=== PATIENT | female | born 1950 | race Caucasian/White ===

== ENCOUNTER 2017-04-08 13:40 | Inpatient (IN) | payer MEDICAID ==
[~2017-04-08] VITALS: Ht 175.3 cm; Wt 100.3 kg
[2017-04-08 13:42] VITALS: BP 156/76; PULSE 78; RESP 16; O2SAT 98
[2017-04-08] MEDS ORDERED: NORT25CA PO (14:00)
[2017-04-08] MEDS ORDERED: GABA300C5 PO (14:00)
[2017-04-08] MEDS ORDERED: OMEP40CA2 PO (14:00)
[2017-04-08] MEDS ORDERED: vicodin PO (14:00)
[2017-04-08] MEDS ORDERED: SODIUM CHLORIDE 0.9% FLUSH 10 ML FLUSH IV FLUSH PRN ×2 (14:15→17:15)
[2017-04-08] MEDS ORDERED: SODIUM CHLOR 0.9% 1000 ML INJ 1,000 ML IV ONE (14:15)
[2017-04-08] MEDS ORDERED: MORPHINE SULFATE 4 MG/ML INJ IV PUSH ONE (14:15)
--- NOTE | 2017-04-08 14:24 | PD ---
HPI Chief Complaint: Fall Time Seen by Provider: 14:09 Travel History International Travel<30 days: No Contact w/Intl Traveler<30days: No Traveled to known affect area: No History of Present Illness HPI 66-year-old female with PMH of gastric bypass, right TKR presents to the ED via EMS from [facility] for evaluation of neck pain status post fall from standing. The patient states that her right knee gave out on her while she was turning and she fell, striking her head and neck on a 12 inch high concrete planter before hitting the ground. She denies loss of consciousness. On presentation she complains of 10/10 pain at the base of the skull that radiates into the mid thoracic spine. She denies headache, dizziness, vision change, chest pain, shortness of breath, abdominal pain, nausea, low back pain, numbness , tingling, weakness, limitations to range of motion of the extremities. She denies blood thinners. PFSH Past Medical History Arthritis: Yes Depression: Yes Diabetes: Yes (diet controlled) Patient Takes Glucophage: No Influenza Vaccination: Yes Past Surgical History Abdominal Surgery: Yes (gastric bypass) Thoracic Surgery: Yes Tonsillectomy: Yes Social History Alcohol Use: No Tobacco Use: No Substance Use: No Allergies-Medications (Allergen,Severity, Reaction): Coded Allergies: morphine (Verified Allergy, Severe, ended up in icu, 04/08/17) Reported Meds & Prescriptions Reported Meds & Active Scripts Active Reported Omeprazole 40 Mg Cap 40 Mg PO DAILY Gabapentin 300 Mg Cap Unknown Dose PO BID [vicodin] Unknown Dose PO BID PRN Nortriptyline (Nortriptyline HCl) 25 Mg Cap Unknown Dose PO BID Review of Systems Except as stated in HPI: all other systems reviewed are Neg Physical Exam Narrative GENERAL: Well-nourished, well-developed white female in no acute distress. On a backboard, wearing a c-collar. SKIN: Warm and dry. Thorough evaluation reveals no edema, ecchymosis, abrasion , or laceration of the skin. HEAD: Normocephalic. Atraumatic. No raccoon eyes or guajardo sign. No tenderness to palpation of the skull. No bony step-offs. No malocclusion of the teeth. EYES: No scleral icterus. No injection or drainage. PERRLA. EOMI. ENT: Pearly shahid tympanic membrane is bilaterally. Nasal mucosa is moist. Oropharynx without erythema, edema or exudate. NECK: Supple, trachea midline. No JVD or lymphadenopathy. C-collar retained pending CT. CARDIOVASCULAR: Regular rate and rhythm without murmurs, gallops, or rubs. 2+ DP and radial pulses bilaterally. RESPIRATORY: Breath sounds clear and equal bilaterally. No accessory muscle use. GASTROINTESTINAL: Abdomen soft, non-tender, nondistended. + Bowel sounds MUSCULOSKELETAL: No cyanosis, or edema. No pain elicited with pelvic rocking. Tender to palpation of the anterior aspect of the right knee with mild limitations to range of motion. No other tenderness to palpation or limitations to range of motion of the joints of the upper and lower extremities noted bilaterally. NEUROLOGICAL: Awake and alert. Cranial nerves II through XII intact. Motor and sensory grossly within normal limits. 5/5 muscle strength in all muscle groups. Normal speech. BACK: Nontender without obvious deformity. No CVA tenderness. No midline tenderness. Data Data Last Documented VS Vital Signs Date Time Temp Pulse Resp B/P (MAP) Pulse Ox O2 Delivery O2 Flow Rate FiO2 04/08/17 13:42 78 16 156/76 (102) [address] Brain W/O Iv Contrast(Rout) (04/08/17 14:) Ct Cerv Spine W/O Contrast (04/08/17 14:) Ct Thor Spine W/O Contrast (04/08/17 14:01) Complete Blood Count With Diff (04/08/17 14:) Comprehensive Metabolic Panel (04/08/17 14:) Prothrombin Time / Inr (Pt) (04/08/17 14:) Act Partial Throm Time (Ptt) (04/08/17 14:) Urinalysis - C+S If Indicated (04/08/17 14:) Iv Access Insert/Monitor (04/08/17 14:) Ecg Monitoring (04/08/17 14:) Oximetry (04/08/17 14:) Sodium Chloride 0.9% Flush (Ns Flush) (04/08/17 14:15) Sodium Chlor 0.9% 1000 Ml Inj (Ns 1000 M (04/08/17 14:15) Knee, Complete (4vws) (04/08/17 14:) Ice/Cold Pack (04/08/17 14:01) Acetamin-Hydrocod 325-7.5 Mg ([facility] 7.5 (04/08/17 14:45) Acetaminophen (Tylenol) (04/08/17 17:15) Spine, Cervical Fl/Ext Only (04/08/17 ) Consult Neurosurgery (04/08/17 ) Admit Order (Ed Use Only) (04/08/17 17:13) Admit To Inpatient (04/08/17 ) Code Status (04/08/17 17:13) Vital Signs (Adult) Q4H (04/08/17 17:13) Activity Bed Rest (04/08/17 17:13) Drill Presser / Telemetry .CONTINUOUS (04/08/17:13) Intake + Output OPAL.QSHIFT (04/08/17 17:13) Notify Dr: Other (04/08/17 17:13) Diet Npo (04/08/17 Dinner) Sodium Chlor 0.9% 1000 Ml Inj (Ns 1000 M (04/08/17 17:13) Sodium Chloride 0.9% Flush (Ns Flush) (04/08/17 17:15) Sodium Chloride 0.9% Flush (Ns Flush) (04/08/17 21:00) Acetaminophen (Tylenol) (04/08/17 17:15) Ondansetron Inj (Zofran Inj) (04/08/17 17:15) Comprehensive Metabolic Panel (04/09/17 06:00) Complete Blood Count With Diff (04/09/17 06:00) Resp Oxygen Alf C Titrat 1-4 L (04/08/17 ) Scd Bilateral/Knee High OPAL.BID (04/08/17 17:13) Naloxone Inj (Narcan Inj) (04/08/17 17:15) Docusate Sodium-Senna (Lela-Colace) (04/08/17 21:00) Magnesium Hydroxide Liq (Milk Of Magnesi (04/08/17 17:15) Sennosides (Senokot) (04/08/17 17:15) Bisacodyl Supp (Dulcolax Supp) (04/08/17 17:15) Lactulose Liq (Lactulose Liq) (04/08/17 17:15) Inpatient Certification (04/08/17 ) Labs Laboratory Tests Test 04/08/17 14:07 04/08/17 15:00 White Blood Count 6.6 TH/MM3 Red Blood Count 3.73 MIL/MM3 Hemoglobin 11.4 GM/DL Hematocrit 34.4 % Mean Corpuscular Volume 92.1 FL Mean Corpuscular Hemoglobin 30.7 PG Mean Corpuscular Hemoglobin Concent 33.3 % Red Cell Distribution Width 14.6 % Platelet Count 271 TH/MM3 Mean Platelet Volume 7.2 FL Neutrophils (%) (Auto) 55.0 % Lymphocytes (%) (Auto) 30.4 % Monocytes (%) (Auto) 8.6 % Eosinophils (%) (Auto) 5.2 % Basophils (%) (Auto) 0.8 % Neutrophils # (Auto) 3.6 TH/MM3 Lymphocytes # (Auto) 2.0 TH/MM3 Monocytes # (Auto) 0.6 TH/MM3 Eosinophils # (Auto) 0.3 TH/MM3 Basophils # (Auto) 0.1 TH/MM3 CBC Comment DIFF FINAL Differential Comment Prothrombin Time 10.6 SEC Prothromb Time International Ratio 1.0 RATIO Activated Partial Thromboplast Time 26.1 SEC Blood Urea Nitrogen 13 MG/DL Creatinine 0.81 MG/DL Random Glucose 71 MG/DL Total Protein 7.0 GM/DL Albumin 3.6 GM/DL Calcium Level 8.8 MG/DL Alkaline Phosphatase 133 U/L Aspartate Amino Transf (AST/SGOT) 20 U/L Alanine Aminotransferase (ALT/SGPT) 22 U/L Total Bilirubin 0.2 MG/DL Sodium Level 141 MEQ/L Potassium Level 4.6 MEQ/L Chloride Level 108 MEQ/L Carbon Dioxide Level 25.7 MEQ/L Anion Gap 7 MEQ/L Estimat Glomerular Filtration Rate 71 ML/MIN Urine Color LIGHT-YELLOW Urine Turbidity CLEAR Urine pH 6.5 Urine Specific [place] 1.007 Urine Protein NEG mg/dL Urine Glucose (UA) NEG mg/dL Urine Ketones NEG mg/dL Urine Occult Blood NEG Urine Nitrite NEG Urine Bilirubin NEG Urine Urobilinogen LESS THAN 2.0 MG/DL Urine Leukocyte Esterase NEG Urine RBC LESS THAN 1 /hpf Urine Squamous Epithelial Cells <1 /hpf Microscopic Urinalysis Comment CULT NOT INDICATED MDM Medical Decision Making Medical Screen Exam Complete: Yes Emergency Medical Condition: Yes Differential Diagnosis Closed head injury versus skull fracture versus ICH versus cervical subluxation versus cervical fracture versus musculoskeletal pain versus other Narrative Course 66-year-old female with PMH of gastric bypass, right TKR presents to the ED via EMS from [facility] for evaluation of neck pain status post fall from standing after striking her head and neck on a 12 inch high concrete planter before hitting the ground. She denies LOC. On presentation she complains of 10/ 10 pain at the base of the skull that radiates into the mid thoracic spine. She denies headache, dizziness, vision change, chest pain, shortness of breath, abdominal pain, nausea, low back pain, numbness, tingling, weakness, limitations to range of motion of the extremities. She denies blood thinners. Vitals reviewed. Patient arrives to the ED in a cervical immobilizer and on a backboard. She was cleared from the backboard. Physical exam reveals no focal neuro deficits. Given the mechanism of injury the c-collar is left in place pending CT. Chest some tenderness of the right knee but the exam is otherwise unremarkable. IV was established. Patient was administered Vicodin by mouth and a liter of normal saline IV. CT of the cervical spine reveals hangman's fracture's of C5 and C6 with mild displacement. CT of the thoracic spine and CT of the head without any acute injury per radiology read. X-ray of the knee shows mild prepatellar soft tissue swelling but is otherwise unremarkable. No concerning abnormalities of CBC, CMP, coags or UA. I spoke with Dr. Wetzel, on-call neurosurgeon. He recommends that the patient have flexion and extension radiological views of the cervical spine and be admitted to the medicine service. I discussed the x-ray orders with the radiology department who are uncomfortable with flex and extend in a patient with an unstable cervical spinal injury. I'll cancel the order for now. Dr. Wetzel can reorder and oversee the xrays when he sees the patient this evening if necessary. I spoke with Dr. Conte who agrees to accept the patient to the medicine service. Please see medicine notes for disposition. Priscilla Kelly Apr 08, 2017 14:24
[2017-04-08 14:25] LABS: AUTOMATED NEUTROPHIL # 3.6 TH/MM3 (1.8-7.7); BASOPHIL # 0.1 TH/MM3 (0-0.2); BASOPHIL % 0.8 % (0.0-2.0); EOSINOPHIL # 0.3 TH/MM3 (0-0.4); EOSINOPHIL % 5.2 % (0.0-4.0); HEMATOCRIT 34.4 % (35.0-46.0); HEMO FLAGS DIFF FINAL; LYMPH % 30.4 % (9.0-44.0); MEAN CELL VOLUME 92.1 FL (80.0-100.0); MEAN CORPUSCULAR HEMOGLOBIN 30.7 PG (27.0-34.0); MEAN CORPUSCULAR HGB CONC 33.3 % (32.0-36.0); MONO % 8.6 % (0.0-8.0); PLATELET COUNT 271 TH/MM3 (150-450); RED BLOOD COUNT 3.73 MIL/MM3 (4.00-5.30); RED CELL DISTRIBUTION WIDTH 14.6 % (11.6-17.2); WHITE BLOOD COUNT 6.6 TH/MM3 (4.0-11.0)
[2017-04-08 14:31] LABS: PROTHROMBIN TIME - PATIENT 10.6 SEC (9.8-11.6)
[2017-04-08 14:32] LABS: APTT (PATIENT) 26.1 SEC (24.3-30.1)
[2017-04-08 14:44] LABS: ALKALINE PHOSPHATASE 133 U/L (45-117); TOTAL BILIRUBIN ADULT 0.2 MG/DL (0.2-1.0)
[2017-04-08] MEDS ORDERED: ACETAMINOPHEN/HYDROcodone 325 MG/7.5 MG TAB PO ONE (14:45)
[2017-04-08 14:52] LABS: ALT (GPT) 22 U/L (10-53); ANION GAP 7 MEQ/L (5-15); AST (GOT) 20 U/L (15-37); BICARBONATE 25.7 MEQ/L (21.0-32.0); BLOOD UREA NITROGEN 13 MG/DL (7-18); CHLORIDE 108 MEQ/L (98-107); GLOMERULAR FILTRATION RATE 71 ML/MIN (>89); POTASSIUM 4.6 MEQ/L (3.5-5.1); SODIUM (NA) 141 MEQ/L (136-145)
[2017-04-08 15:21] LABS: BLOOD, URINE NEG (NEG); COMMENT (UR) CULT NOT INDICATED; CULTURE IF INDICATED CULT NOT INDICATED; GLUCOSE,URINE NEG (NEG); KETONE, URINE NEG (NEG); NITRITE,URINE NEG (NEG); PH, URINE 6.5 (5.0-8.5); SQUAMOUS EPITHELIAL CELL URINE <1 /hpf (0-5); URINE COLOR LIGHT-YELLOW (YELLW/STRAW)
--- NOTE | 2017-04-08 15:44 | RADRPT ---
EXAM DATE/TIME: 04/08/2017 14:28 [facility] COMPARISON: No previous studies available for comparison. INDICATIONS : Right knee pain post fall. MEDICAL HISTORY : Arthritis. Diabetic. SURGICAL HISTORY : Tonsillectomy. Total knee replacement, right. Gastric bypass. ENCOUNTER: Initial ACUITY: 1 day PAIN SCORE: 8/10 LOCATION: Right knee FINDINGS: Four view examination of the right knee demonstrates a knee replacement which appears to be well seat ed and satisfactorily aligned. There is prepatellar soft tissue swelling. There is no evidence of acu te fracture. CONCLUSION: 1. No evidence of acute fracture or dislocation. 2. Mild prepatellar soft tissue swelling. 3. Status post knee replacement. Lonnie Garcia MD on April 08, 2017 at 15:38 Board Certified Radiologist. This report was verified electronically.
--- NOTE | 2017-04-08 15:53 | RADRPT ---
EXAM DATE/TIME: 04/08/2017 15:06 [facility] COMPARISON: No previous studies available for comparison. INDICATIONS : Patient fell, complains of neck pain RADIATION DOSE: 38.08 CTDIvol (mGy) MEDICAL HISTORY : Diabetes mellitus type 1. SURGICAL HISTORY : Gastric bypass. ENCOUNTER: Initial ACUITY: 1 day PAIN SCALE: 2/10 LOCATION: occipital TECHNIQUE: Multiple contiguous axial images were obtained of the head. Using automated exposure control and adj ustment of the mA and/or kV according to patient size, radiation dose was kept as low as reasonably a chievable to obtain optimal diagnostic quality images. DICOM format image data is available electro nically for review and comparison. FINDINGS: CEREBRUM: The ventricles are normal for age. No evidence of midline shift, mass lesion, hemorrhage or acute in farction. No extra-axial fluid collections are seen. POSTERIOR FOSSA: The cerebellum and brainstem are intact. The 4th ventricle is midline. The cerebellopontine angle i s unremarkable. EXTRACRANIAL: The visualized portion of the orbits is intact. SKULL: The calvaria is intact. No evidence of skull fracture. CONCLUSION: 1. Unremarkable exam. 2. No evidence of acute infarct, hemorrhage, mass or edema. 3. Intact calvarium. Lonnie Garcia MD on April 08, 2017 at 15:51 Board Certified Radiologist. This report was verified electronically.
--- NOTE | 2017-04-08 16:49 | RADRPT ---
EXAM DATE/TIME: 04/08/2017 15:06 [facility] COMPARISON: No previous studies available for comparison. INDICATIONS : Patient fell RADIATION DOSE: 24.45 CTDIvol (mGy) MEDICAL HISTORY : Diabetes mellitus type 1. SURGICAL HISTORY : Gastric bypass. ENCOUNTER: Initial ACUITY: 1 day PAIN SCALE: 7/10 LOCATION: neck TECHNIQUE: Volumetric scanning of the cervical spine was performed. Multiplanar reconstructions in the sagittal, coronal and oblique axial planes were performed. Using automated exposure control and adjustment o f the mA and/or kV according to patient size, radiation dose was kept as low as reasonably achievable to obtain optimal diagnostic quality images. DICOM format image data is available electronically f or review and comparison. FINDINGS: The patient has mildly angulated spinous process fractures at C5 and C6. The vertebra are intact with satisfactory cervical spine alignment. There is no evidence of bony canal compromise. There are dege nerative changes present throughout the cervical spine with disc space narrowing most significantly a t C5-6 and C6-7. Small endplate osteophytes are present. The posterior facets are intact bilaterally with satisfactory alignment. There is no evidence of significant paraspinal hematoma. CONCLUSION: Mildly displaced hangman's fractures at C5 and C6. Daniel Henson MD on April 08, 2017 at 16:44 Board Certified Radiologist. This report was verified electronically.
--- NOTE | 2017-04-08 17:08 | PD.CONS ---
HPI Consult Requested By Primary Care Physician Unknown Past Family Social History Allergies: Coded Allergies: morphine (Verified Allergy, Severe, ended up in icu, 04/08/17) Physical Exam Vital Signs Vital Signs Date Time Temp Pulse Resp B/P (MAP) Pulse Ox O2 Delivery O2 Flow Rate FiO2 04/08/17 13:42 78 16 156/76 (102) 98 Laboratory Laboratory Tests Test 04/08/17 14:07 04/08/17 15:00 White Blood Count 6.6 Red Blood Count 3.73 Hemoglobin 11.4 Hematocrit 34.4 Mean Corpuscular Volume 92.1 Mean Corpuscular Hemoglobin 30.7 Mean Corpuscular Hemoglobin Concent 33.3 Red Cell Distribution Width 14.6 Platelet Count 271 Mean Platelet Volume 7.2 Neutrophils (%) (Auto) 55.0 Lymphocytes (%) (Auto) 30.4 Monocytes (%) (Auto) 8.6 Eosinophils (%) (Auto) 5.2 Basophils (%) (Auto) 0.8 Neutrophils # (Auto) 3.6 Lymphocytes # (Auto) 2.0 Monocytes # (Auto) 0.6 Eosinophils # (Auto) 0.3 Basophils # (Auto) 0.1 CBC Comment DIFF FINAL Differential Comment Prothrombin Time 10.6 Prothromb Time International Ratio 1.0 Activated Partial Thromboplast Time 26.1 Blood Urea Nitrogen 13 Creatinine 0.81 Random Glucose 71 Total Protein 7.0 Albumin 3.6 Calcium Level 8.8 Alkaline Phosphatase 133 Aspartate Amino Transf (AST/SGOT) 20 Alanine Aminotransferase (ALT/SGPT) 22 Total Bilirubin 0.2 Sodium Level 141 Potassium Level 4.6 Chloride Level 108 Carbon Dioxide Level 25.7 Anion Gap 7 Estimat Glomerular Filtration Rate 71 Urine Color LIGHT-YELLOW Urine Turbidity CLEAR Urine pH 6.5 Urine Specific [place] 1.007 Urine Protein NEG Urine Glucose (UA) NEG Urine Ketones NEG Urine Occult Blood NEG Urine Nitrite NEG Urine Bilirubin NEG Urine Urobilinogen LESS THAN 2.0 Urine Leukocyte Esterase NEG Urine RBC LESS THAN 1 Urine Squamous Epithelial Cells <1 Microscopic Urinalysis Comment CULT NOT INDICATED Result Diagram: 04/08/17 1407 11/9/17 1407 Attending Statement Neuro. neuro checks in a serial fashion. Cervical fractures. Pala J collar. Obtain flexion extension xrays C spine Pulmonary.aggressive pulmonary toilette, nasotracheal suction, and breathing treatments with nebulizers. Nutrition. Oral diet Renal. monitor closely urine output, BUN and creatinine Endocrine. Monitor serial Acu checks and SSI as needed in detail ID monitor for signs of infection Protonix for stress ulcer prophylaxis Alfredo hose and SCD's for DVT prophylaxis. Alexey Wetzel MD Apr 08, 2017 17:08
[2017-04-08] MEDS ORDERED: NALOXONE HCL 0.4 MG/ML AMP IV PUSH PRN (17:15)
[2017-04-08] MEDS ORDERED: ACETAMINOPHEN 500 MG CPLT PO ONE (17:15)
[2017-04-08] MEDS ORDERED: BISACODYL 10 MG SUPP RECTAL PRN (17:15)
[2017-04-08] MEDS ORDERED: ACETAMINOPHEN 325 MG TAB PO PRN (17:15)
[2017-04-08] MEDS ORDERED: SENNOSIDES 8.6 MG TAB PO PRN (17:15)
[2017-04-08] MEDS ORDERED: LACTULOSE SYRUP 20 GM/30 ML CUP PO PRN (17:15)
[2017-04-08] MEDS ORDERED: MAGNESIUM HYDROXIDE SUSP 30 ML CUP PO PRN (17:15)
[2017-04-08] MEDS ORDERED: ONDANSETRON HCL 4 MG/2 ML VIAL IVP PRN (17:15)
--- NOTE | 2017-04-08 17:28 | RADRPT ---
EXAM DATE/TIME: 04/08/2017 15:11 [facility] COMPARISON: No previous studies available for comparison. INDICATIONS : Patient fell RADIATION DOSE: 35.20 CTDIvol (mGy) MEDICAL HISTORY : Diabetes mellitus type 1. SURGICAL HISTORY : Gastric bypass. ENCOUNTER: Initial ACUITY: 1 day PAIN SCALE: 5/10 LOCATION: upper back TECHNIQUE: Volumetric scanning of the thoracic spine was performed. Multiplanar reconstructions in the sagittal , coronal and oblique axial planes were performed. Using automated exposure control and adjustment o f the mA and/or kV according to patient size, radiation dose was kept as low as reasonably achievable to obtain optimal diagnostic quality images. DICOM format image data is available electronically f or review and comparison. FINDINGS: Thoracic spine alignment is satisfactory. There is no evidence of thoracic spine fracture. No bony ca nal or foraminal compromise is noted. There are mild degenerative changes throughout with small prima rily ventral endplate osteophytes at multiple levels most conspicuously in the lower thoracic region area there are healed or healing fractures of the medial posterior left 11th ribs at multiple levels. CONCLUSION: No evidence of acute bony injury in the thoracic spine Daniel Henson MD on April 08, 2017 at 17:24 Board Certified Radiologist. This report was verified electronically.
--- NOTE | 2017-04-08 17:59 | HHI.HP ---
HPI Service [facility] Primary Care Physician Unknown Admission Diagnosis miguelangel's fracture's C5, C6 Diagnoses: Chief Complaint: Status post fall Travel History International Travel<30 Days: No Contact w/Intl Traveler <30 Da: No Traveled to Known Affected Are: No History of Present Illness Patient is a 66 year old female with primary medical history of arthritis, depression, fibromyalgia who came into the hospital status post fall. Patient states that she was standing and there was a little girl beside her trying to draw on the ground and she told her to move a little bit she turned around she thought that she probably tripped on herself and she fell backwards and hit her head on the ground twice. States she did not have any hour out, dizziness, headaches prior to falling. She had a previous fall about 3 months ago where and she was in [place] and was hospitalized for that said she had bruised her left side and most of her ribs are still hurting. States that she now has of pain 8/10 burning from the neck towards her back, she usually gets relief from pain medication, aggravated by breathing and movement. She also complains of headache but states she was given some Tylenol and she is waiting for relief from it. Denies chest pain, palpitations, shortness of breath, dyspnea. Denies nausea, vomiting, diarrhea. Denies any fevers, chills. Denies any exposure to sick people or animals. Denies dysuria, hematuria. Denies numbness / tingling in all extremities. Review of Systems Except as stated in HPI: all other systems reviewed are Neg Past Family Social History Past Medical History Pruritus Depression Fibromyalgia History of diabetes but now diet controlled Past Surgical History Gastric bypass Right total knee replacement Reported Medications Reported Meds & Active Scripts Active Reported Omeprazole 40 Mg Cap 40 Mg PO DAILY Gabapentin 300 Mg Cap Unknown Dose PO BID [vicodin] Unknown Dose PO BID PRN Nortriptyline (Nortriptyline HCl) 25 Mg Cap Unknown Dose PO BID Allergies: Coded Allergies: morphine (Verified Allergy, Severe, ended up in icu, 04/08/17) Active Ordered Medications Current Medications Medications (Trade) Dose Ordered Sig/Anisha Route Start Time Stop Time Status Last Admin Sodium Chloride 1,000 ml @ 100 mls/hr Q10H IV 04/08/17 17:13 (NS Flush) 2 ml UNSCH PRN IV FLUSH 04/08/17 17:15 (NS Flush) 2 ml BID IV FLUSH 04/08/17 21:00 (Tylenol) 650 mg Q4H PRN PO 04/08/17 17:15 (Zofran Inj) 4 mg Q6H PRN IVP 04/08/17 17:15 (Narcan Inj) 0.4 mg UNSCH PRN IV PUSH 04/08/17 17:15 (Lela-Colace) 1 tab BID PO 04/08/17 21:00 (Milk Of Magnesia Liq) 30 ml Q12H PRN PO 04/08/17 17:15 (Senokot) 17.2 mg Q12H PRN PO 04/08/17 17:15 (Dulcolax Supp) 10 mg DAILY PRN RECTAL 04/08/17 17:15 (Lactulose Liq) 30 ml DAILY PRN PO 04/08/17 17:15 Family History Father of lung cancer Mother of post knee replacement with amanda placement complications Denies family history of heart attack, stroke Social History Patient just moved to the area. Denies alcohol use Denies Tobacco use Denies illicit drug use Physical Exam Vital Signs Vital Signs Date Time Temp Pulse Resp B/P (MAP) Pulse Ox O2 Delivery O2 Flow Rate FiO2 04/08/17 13:42 78 16 156/76 (102) 98 Physical Exam GENERAL: This is well nourish, well-developed patient, in no apparent distress. SKIN: Warm and dry. HEAD: Normocephalic. Scalp tenderness in the back. EYES: Pupils equal round and reactive. Extraocular motions intact. No scleral icterus. No injection or drainage. ENT: Nose without bleeding. Throat without erythema. Uvula midline. Airway patent. NECK: Trachea midline. C-collar in place. CARDIOVASCULAR: Regular rate and rhythm without murmurs, gallops, or rubs. RESPIRATORY: Clear to auscultation. Breath sounds equal bilaterally. No wheezes , rales, or rhonchi. GASTROINTESTINAL: Abdomen soft, non-tender, nondistended. Bowel sounds active 4. MUSCULOSKELETAL: Extremities without clubbing, cyanosis, or edema. Right knee joint tenderness, trace edema on the knee, no erythema. NEUROLOGICAL: Awake and alert. Oriented to person, place, time. Cranial nerves II through XII intact. Motor and sensory grossly within normal limits. Normal speech. Laboratory Laboratory Tests Test 04/08/17 14:07 04/08/17 15:00 White Blood Count 6.6 Red Blood Count 3.73 Hemoglobin 11.4 Hematocrit 34.4 Mean Corpuscular Volume 92.1 Mean Corpuscular Hemoglobin 30.7 Mean Corpuscular Hemoglobin Concent 33.3 Red Cell Distribution Width 14.6 Platelet Count 271 Mean Platelet Volume 7.2 Neutrophils (%) (Auto) 55.0 Lymphocytes (%) (Auto) 30.4 Monocytes (%) (Auto) 8.6 Eosinophils (%) (Auto) 5.2 Basophils (%) (Auto) 0.8 Neutrophils # (Auto) 3.6 Lymphocytes # (Auto) 2.0 Monocytes # (Auto) 0.6 Eosinophils # (Auto) 0.3 Basophils # (Auto) 0.1 CBC Comment DIFF FINAL Differential Comment Prothrombin Time 10.6 Prothromb Time International Ratio 1.0 Activated Partial Thromboplast Time 26.1 Blood Urea Nitrogen 13 Creatinine 0.81 Random Glucose 71 Total Protein 7.0 Albumin 3.6 Calcium Level 8.8 Alkaline Phosphatase 133 Aspartate Amino Transf (AST/SGOT) 20 Alanine Aminotransferase (ALT/SGPT) 22 Total Bilirubin 0.2 Sodium Level 141 Potassium Level 4.6 Chloride Level 108 Carbon Dioxide Level 25.7 Anion Gap 7 Estimat Glomerular Filtration Rate 71 Urine Color LIGHT-YELLOW Urine Turbidity CLEAR Urine pH 6.5 Urine Specific [place] 1.007 Urine Protein NEG Urine Glucose (UA) NEG Urine Ketones NEG Urine Occult Blood NEG Urine Nitrite NEG Urine Bilirubin NEG Urine Urobilinogen LESS THAN 2.0 Urine Leukocyte Esterase NEG Urine RBC LESS THAN 1 Urine Squamous Epithelial Cells <1 Microscopic Urinalysis Comment CULT NOT INDICATED Result Diagram: 04/08/17140604/08/171406 Imaging Last Impressions Thoracic Spine CT 04/08/171400 Signed Impressions: Service Date/Time: March 15:11 - CONCLUSION: No evidence of acute bony injury in the thoracic spine Daniel Henson MD Knee X-Ray 04/08/171400 Signed Impressions: Service Date/Time: March 14:28 - CONCLUSION: 1. No evidence of acute fracture or dislocation. 2. Mild prepatellar soft tissue swelling. 3. Status post knee replacement. Lonnie Garcia MD Head CT 04/08/171400 Signed Impressions: Service Date/Time: March 15:06 - CONCLUSION: 1. Unremarkable exam. 2. No evidence of acute infarct, hemorrhage, mass or edema. 3. Intact calvarium. Lonnie Garcia MD Cervical Spine CT 04/08/171400 Signed Impressions: Service Date/Time: March 15:06 - CONCLUSION: Mildly displaced hangman's fractures at C5 and C6. Daniel Henson MD Caprini VTE Risk Assessment Caprini VTE Risk Assessment: Mod/High Risk (score >= 2) Caprini Risk Assessment Model Point Value = 1 Point Value = 2 Point Value = 3 Point Value = 5 Age 41-60 Minor surgery BMI > 25 kg/m2 Swollen legs Varicose veins or History of unexplained or recurrent spontaneous Oral contraceptives or hormone replacement Sepsis (< 1 month) Serious lung disease, including pneumonia (< 1 month) Abnormal pulmonary function Acute myocardial infarction Congestive heart failure (< 1 month) History of inflammatory bowel disease Medical patient at bed rest Age 61-74 Arthroscopic surgery Major open surgery (> 45 min) Laparoscopic surgery (> 45 min) Malignancy Confined to bed (> 72 hours) Immobilizing plaster cast Central venous access Age >= 75 History of VTE Family history of VTE Factor V Leiden Prothrombin [id number] Lupus anticoagulant Anticardiolipin antibodies Elevated serum homocysteine Heparin-induced thrombocytopenia Other congenital or acquired thrombophilia Stroke (< 1 month) Elective arthroplasty Hip, pelvis, or leg fracture Acute spinal cord injury (< 1 month) Prophylaxis Regimen Total Risk Factor Score Risk Level Prophylaxis Regimen 0-1 Low Early ambulation 2 Moderate Order ONE of the following: *Sequential Compression Device (SCD) *Heparin 5000 units SQ BID 3-4 Higher Order ONE of the following medications: *Heparin 5000 units SQ TID *Enoxaparin/Lovenox 40 mg SQ daily (WT < 150 kg, CrCl > 30 mL/min) *Enoxaparin/Lovenox 30 mg SQ daily (WT < 150 kg, CrCl > 10-29 mL/min) *Enoxaparin/Lovenox 30 mg SQ BID (WT < 150 kg, CrCl > 30 mL/min) AND/OR *Sequential Compression Device (SCD) 5 or more Highest Order ONE of the following medications: *Heparin 5000 units SQ TID (Preferred with Epidurals) *Enoxaparin/Lovenox 40 mg SQ daily (WT < 150 kg, CrCl > 30 mL/min) *Enoxaparin/Lovenox 30 mg SQ daily (WT < 150 kg, CrCl > 10-29 mL/min) *Enoxaparin/Lovenox 30 mg SQ BID (WT < 150 kg, CrCl > 30 mL/min) AND *Sequential Compression Device (SCD) Assessment and Plan Problem List: (1) Fibromyalgia ICD Code: M79.7 - Fibromyalgia Status: Chronic (2) Status post fall ICD Code: Z91.81 - History of falling Status: Acute (3) Displacement of intervertebral disc at C5-C6 level ICD Code: M50.222 - Other cervical disc displacement at C5-C6 level Status: Acute Assessment and Plan Patient is a 66 year old female with primary medical history of arthritis, depression, fibromyalgia who came into the hospital status post fall. S/P Fall, mildly displaced hangman's fractures at C5 and C6 - Cervical CT of the spine showed mildly displaced hangman's fracture at C5- C6 - Continue with c-collar. Discussed with patient to maintain collar. - Neurosurgery consult for further evaluation either possible surgical intervention or c-collar maintenance - Pain management, patient has known fibromyalgia and takes Vicodin at home. Given [place] 7.5/325 in the ED - Head CT 1. Unremarkable exam. 2. No evidence of acute infarct, hemorrhage, mass or edema. 3. Intact calvarium - Right knee x-ray showed no evidence of acute fracture or dislocation. 2. Mild prepatellar soft tissue swelling. 3. Status post knee replacement - Knee can be iced, on and off DVT prop SCDs The exam, history, and the medical decision-making described in the above note were completed with the assistance of the mid-level provider. I reviewed and agree with the findings presented. I attest that I had a [id number] encounter with the patient on the same day, and personally performed and documented my assessment and findings in the medical record. Code Status Full code Discussed Condition With Patient, nursing, Dr. Conte Physician Certification 2 Midnight Certification Type: Admission for Inpatient Services Order for Inpatient Services The services are ordered in accordance with Medicare regulations or non- Medicare payer requirements, as applicable. In the case of services not specified as inpatient-only, they are appropriately provided as inpatient services in accordance with the 2-midnight benchmark. Estimated LOS (days): 3 days is the estimated time the patient will need to remain in the hospital, assuming treatment plan goals are met and no additional complications. Post-Hospital Plan: Not yet determined Eva Ngo Apr 08, 2017 17:59 Monster Guevara MD Apr 08, 2017 18:16
[2017-04-08 18:51] VITALS: O2SAT 98
[2017-04-08 19:09] VITALS: BP 145/74; PULSE 77; RESP 16; O2SAT 95
[2017-04-08] MEDS: SODIUM CHLOR 0.9% 1000 ML INJ 1,000 ML IV SCH (20:08)
[2017-04-08] MEDS: ACETAMINOPHEN/HYDROcodone 325 MG/7.5 MG TAB PO PRN (20:09)
[2017-04-08 20:16] VITALS: O2SAT 95
[2017-04-08 21:03] VITALS: BP 167/77; PULSE 78; RESP 17; TEMP 97.4; O2SAT 96
[2017-04-08] MEDS: DOCUSATE SODIUM 50 MG/SENNA 8.6 MG TAB PO SCH (21:31)
[2017-04-08] MEDS: SODIUM CHLORIDE 0.9% FLUSH 10 ML FLUSH IV FLUSH SCH (21:31)
[2017-04-09] VITALS: BP 159/72; PULSE 79; RESP 16; TEMP 97.5; O2SAT 97
[2017-04-09 04:00] VITALS: BP 149/69; PULSE 76; RESP 17; TEMP 97.1; O2SAT 94
[2017-04-09] MEDS: ACETAMINOPHEN/HYDROcodone 325 MG/7.5 MG TAB PO PRN ×4 (04:30→13:30)
[2017-04-09] MEDS: SODIUM CHLOR 0.9% 1000 ML INJ 1,000 ML IV SCH ×3 (04:30→20:21)
[2017-04-09 05:49] LABS: BASOPHIL % 0.7 % (0.0-2.0); EOSINOPHIL # 0.4 TH/MM3 (0-0.4); EOSINOPHIL % 5.9 % (0.0-4.0); HEMATOCRIT 33.6 % (35.0-46.0); HEMO FLAGS DIFF FINAL; LYMPH % 34.5 % (9.0-44.0); LYMPHOCYTE # 2.1 TH/MM3 (1.0-4.8); MEAN CELL VOLUME 92.1 FL (80.0-100.0); MEAN CORPUSCULAR HEMOGLOBIN 29.9 PG (27.0-34.0); MEAN CORPUSCULAR HGB CONC 32.4 % (32.0-36.0); MONO % 8.9 % (0.0-8.0); PLATELET COUNT 263 TH/MM3 (150-450); RED BLOOD COUNT 3.64 MIL/MM3 (4.00-5.30); RED CELL DISTRIBUTION WIDTH 14.6 % (11.6-17.2)
[2017-04-09 07:09] LABS: ALKALINE PHOSPHATASE 125 U/L (45-117); ALT (GPT) 18 U/L (10-53); ANION GAP 10 MEQ/L (5-15); AST (GOT) 16 U/L (15-37); BICARBONATE 24.3 MEQ/L (21.0-32.0); BLOOD UREA NITROGEN 10 MG/DL (7-18); CHLORIDE 109 MEQ/L (98-107); GLOMERULAR FILTRATION RATE 72 ML/MIN (>89); POTASSIUM 4.1 MEQ/L (3.5-5.1); SODIUM (NA) 143 MEQ/L (136-145); TOTAL BILIRUBIN ADULT 0.3 MG/DL (0.2-1.0)
[2017-04-09 07:20] VITALS: BP 150/78; PULSE 80; RESP 17; TEMP 96.8; O2SAT 94
[2017-04-09] MEDS: DOCUSATE SODIUM 50 MG/SENNA 8.6 MG TAB PO SCH ×2 (09:00→20:19)
[2017-04-09] MEDS: SODIUM CHLORIDE 0.9% FLUSH 10 ML FLUSH IV FLUSH SCH ×2 (09:00→20:20)
--- NOTE | 2017-04-09 10:41 | RADRPT ---
EXAM DATE/TIME: 04/09/2017 10:08 [facility] COMPARISON: No previous studies available for comparison. INDICATIONS : Hangman's fracture. Neck pain. MEDICAL HISTORY : Arthritis. Diabetic. SURGICAL HISTORY : Tonsillectomy. Total knee replacement, right. Gastric bypass. ENCOUNTER: Subsequent ACUITY: 2 days PAIN SCORE: 8/10 LOCATION: cervical spine FINDINGS: There is no abnormal motion with very limited flexion and extension. Alignment remains anatomic. CONCLUSION: Negative for significant motion however flexion and extension is very limited. Filippo Geller MD FACR on April 09, 2017 at 10:39 Board Certified Radiologist. This report was verified electronically.
[2017-04-09 11:19] VITALS: BP 146/69; PULSE 78; RESP 17; TEMP 96.8; O2SAT 95
--- NOTE | 2017-04-09 13:21 | HHI.PR ---
Subjective Remarks The patient was resting in a chair. She said her pain was uncontrolled at this time. She said she needed to use the bathroom. Discussed with nursing at the bedside. Her home medications were clarified. Objective Vitals Vital Signs Date Time Temp Pulse Resp B/P (MAP) Pulse Ox O2 Delivery O2 Flow Rate FiO2 04/09/17 11:19 96.8 78 17 146/69 (94) 95 04/09/17 10:00 Nasal Cannula 04/09/17 07:20 96.8 80 17 150/78 (102) 94 04/09/17 06:12 21 04/09/17 04:00 97.1 76 17 149/69 (95) 94 04/09/17 00:00 97.5 79 16 159/72 (101) 97 04/08/17 21:03 97.4 78 17 167/77 (107) 96 04/08/17 20:16 95 21 04/08/17 19:09 77 16 145/74 (97) 95 Room Air 04/08/17 18:51 98 04/08/17 13:42 78 16 156/76 (102) 98 I/O 04/08/17 04/08/17 04/08/17 04/09/17 04/09/17 04/09/17 07:00 15:00 23:00 07:00 15:00 23:00 Intake Total 1000 ml 990 ml Balance 1000 ml 990 ml Intake Oral 0 ml 0 ml IV Total 1000 ml 990 ml # Voids 2 2 Result Diagram: 04/09/17 0455 04/09/17 0455 Imaging Last Impressions Cervical Spine X-Ray 04/09/17 0000 Signed Impressions: Service Date/Time: Sunday, April 09, 2017 10:08 - CONCLUSION: Negative for significant motion however flexion and extension is very limited. Filippo Geller MD FACR Thoracic Spine CT 04/08/17 1401 Signed Impressions: Service Date/Time: March 15:11 - CONCLUSION: No evidence of acute bony injury in the thoracic spine Daniel Henson MD Knee X-Ray 04/08/17 1401 Signed Impressions: Service Date/Time: March 14:28 - CONCLUSION: 1. No evidence of acute fracture or dislocation. 2. Mild prepatellar soft tissue swelling. 3. Status post knee replacement. Lonnie Garcia MD Head CT 04/08/17 1401 Signed Impressions: Service Date/Time: March 15:06 - CONCLUSION: 1. Unremarkable exam. 2. No evidence of acute infarct, hemorrhage, mass or edema. 3. Intact calvarium. Lonnie Garcia MD Cervical Spine CT 04/08/17 1401 Signed Impressions: Service Date/Time: March 15:06 - CONCLUSION: Mildly displaced hangman's fractures at C5 and C6. Daniel Henson MD Objective Remarks GENERAL: This is well nourish, well-developed patient, in no apparent distress. SKIN: Warm and dry. HEAD: Normocephalic. Scalp tenderness in the back. EYES: Pupils equal round and reactive. Extraocular motions intact. No scleral icterus. No injection or drainage. ENT: Nose without bleeding. Throat without erythema. Uvula midline. Airway patent. NECK: Trachea midline. C-collar in place. CARDIOVASCULAR: Regular rate and rhythm without murmurs, gallops, or rubs. RESPIRATORY: Clear to auscultation. Breath sounds equal bilaterally. No wheezes , rales, or rhonchi. GASTROINTESTINAL: Abdomen soft, non-tender, nondistended. Bowel sounds active 4. MUSCULOSKELETAL: Extremities without clubbing, cyanosis, or edema. Right knee joint tenderness, trace edema on the knee, no erythema. NEUROLOGICAL: Awake and alert. Oriented to person, place, time. Cranial nerves II through XII intact. Motor and sensory grossly within normal limits. Normal speech. PSYCH: Mood and affect appropriate. Medications and IVs Current Medications Medications (Trade) Dose Ordered Sig/Anisha Route Start Time Stop Time Status Last Admin Sodium Chloride 1,000 ml @ 100 mls/hr Q10H IV 04/08/17 17:13 04/09/17 04:30 (NS Flush) 2 ml UNSCH PRN IV FLUSH 04/08/17 17:15 (NS Flush) 2 ml BID IV FLUSH 04/08/17 21:00 (Tylenol) 650 mg Q4H PRN PO 04/08/17 17:15 (Zofran Inj) 4 mg Q6H PRN IVP 04/08/17 17:15 (Narcan Inj) 0.4 mg UNSCH PRN IV PUSH 04/08/17 17:15 (Lela-Colace) 1 tab BID PO 04/08/17 21:00 (Milk Of Magnesia Liq) 30 ml Q12H PRN PO 04/08/17 17:15 (Senokot) 17.2 mg Q12H PRN PO 04/08/17 17:15 (Dulcolax Supp) 10 mg DAILY PRN RECTAL 04/08/17 17:15 (Lactulose Liq) 30 ml DAILY PRN PO 04/08/17 17:15 ([place] 7.5-325 Mg) 1 tab Q4H PRN PO 04/08/17 18:15 04/09/17 09:12 A/P Problem List: (1) Fibromyalgia ICD Code: M79.7 - Fibromyalgia Status: Chronic (2) Status post fall ICD Code: Z91.81 - History of falling Status: Acute (3) Displacement of intervertebral disc at C5-C6 level ICD Code: M50.222 - Other cervical disc displacement at C5-C6 level Status: Acute Assessment and Plan Patient is a 66 year old female with primary medical history of arthritis, depression, fibromyalgia who came into the hospital status post fall. S/P Fall, mildly displaced hangman's fractures at C5 and C6 Cerv[address] of the spine showed mildly displaced hangman's fracture at C5-C6. Head CT 1. Unremarkable exam. 2. No evidence of acute infarct, hemorrhage, mass or edema. 3. Intact calvarium. - Continue with c-collar. Discussed with patient to maintain collar. - Neurosurgery consult for further evaluation either possible surgical intervention or c-collar maintenance. Appreciate assistance. - Pain management, patient has known fibromyalgia and takes Vicodin at home. Start [place]/ Oxycodone as needed for pain. - incentive spirometry. - PT/ OT. Anemia Unsure of baseline. - check iron studies, B12 level and folate. Fibromyalgia Chronic. - Continue nortriptyline and gabapentin. GERD On omeprazole as an outpt. - continue PPI. DVT prop SCDs Discharge Planning Per Max Alba DO Apr 09, 2017 13:21
[2017-04-09] MEDS: PANTOPRAZOLE SOD 40 MG DELAYED RELEASE TAB PO SCH (14:52)
[2017-04-09] MEDS: GABAPENTIN 300 MG CAP PO SCH ×2 (14:52→18:54)
[2017-04-09 14:53] LABS: TRANSFERRIN IRON PROFILE 243 MG/DL (200-360)
[2017-04-09 15:18] LABS: FERRITIN 13 NG/ML (8-252)
[2017-04-09 16:05] VITALS: BP 141/70; PULSE 83; RESP 17; TEMP 96.8; O2SAT 95
[2017-04-09 20:00] VITALS: BP 163/78; PULSE 81; RESP 17; TEMP 97.6; O2SAT 98
[2017-04-09] MEDS: NORTRIPTYLINE HCL 25 MG CAP PO SCH (20:18)
[2017-04-10] VITALS (7 sets, daily range): BP systolic 121–176; BP diastolic 60–89; PULSE 83–103; RESP 16–18; TEMP 97.2–98.6; O2SAT 94–98
[2017-04-10] MEDS: SODIUM CHLOR 0.9% 1000 ML INJ 1,000 ML IV SCH ×2 (09:13→19:13)
[2017-04-10] MEDS: DOCUSATE SODIUM 50 MG/SENNA 8.6 MG TAB PO SCH ×2 (09:36→23:37)
[2017-04-10] MEDS: GABAPENTIN 300 MG CAP PO SCH ×3 (09:36→18:19)
[2017-04-10] MEDS: PANTOPRAZOLE SOD 40 MG DELAYED RELEASE TAB PO SCH (09:36)
[2017-04-10] MEDS: SODIUM CHLORIDE 0.9% FLUSH 10 ML FLUSH IV FLUSH SCH ×2 (09:36→23:38)
--- NOTE | 2017-04-10 09:57 | HHI.NSPN ---
History Interval History 66-year-old woman status post non-syncopal fall sustaining a neck injury with spinous process fractures C5 through C7. She is in a [place] J collar. Complaining of mild neck pain. No motor or sensory complaints. Exam Results Vital Signs Date Time Temp Pulse Resp B/P (MAP) Pulse Ox O2 Delivery O2 Flow Rate FiO2 04/10/17 08:00 98.0 85 16 163/89 (113) 95 04/09/17 10:00 Nasal Cannula 04/09/17 06:12 21 Intake and Output 04/10/17 04/10/17 04/11/17 08:00 16:00 00:00 Intake Total 360 ml Balance 360 ml Physical Examination Neurological examination is intact without focal motor or sensory deficits. Neck: Patient has a significant amount of posterior midline and paraspinal tenderness left greater than right. Lab, Micro, Other Results Last Impressions Cervical Spine X-Ray 04/09/17 0000 Signed Impressions: Service Date/Time: Sunday, April 09, 2017 10:08 - CONCLUSION: Negative for significant motion however flexion and extension is very limited. Filippo Geller MD FACR Thoracic Spine CT 04/08/171400 Signed Impressions: Service Date/Time: March 15:11 - CONCLUSION: No evidence of acute bony injury in the thoracic spine Daniel Henson MD Knee X-Ray 04/08/171400 Signed Impressions: Service Date/Time: March 14:28 - CONCLUSION: 1. No evidence of acute fracture or dislocation. 2. Mild prepatellar soft tissue swelling. 3. Status post knee replacement. Lonnie Garcia MD Head CT 04/08/171400 Signed Impressions: Service Date/Time: March 15:06 - CONCLUSION: 1. Unremarkable exam. 2. No evidence of acute infarct, hemorrhage, mass or edema. 3. Intact calvarium. Lonnie Garcia MD Cervical Spine CT 04/08/171400 Signed Impressions: Service Date/Time: March 15:06 - CONCLUSION: Mildly displaced hangman's fractures at C5 and C6. Daniel Henson MD Medical Decision Making Impression and Plan Assessment: Non-syncopal fall with cervical spinous process fracture C5 through 7. This is a stable injury. Plan: Patient will be treated with external orthosis for pain management. She may be discharged when pain is tolerable and she is a bleeding stably per physical therapy assessment. Otis Bassett MD Apr 10, 2017 09:57
--- NOTE | 2017-04-10 14:06 | HHI.PR ---
Subjective Remarks The patient was feeling well. She said she ambulated with physical therapy earlier. She says she went to the bathroom and had a bowel movement. She said her pain is controlled. She is a little leery of going home today. Discussed with nursing. Objective Vitals Vital Signs Date Time Temp Pulse Resp B/P (MAP) Pulse Ox O2 Delivery O2 Flow Rate FiO2 04/10/17 12:00 98.6 90 16 133/73 (93) 95 04/10/17 08:00 98.0 85 16 163/89 (113) 95 04/10/17 04:00 97.9 87 17 171/84 (113) 98 04/10/17 01:58 16 04/10/17 00:00 97.2 91 16 175/86 (115) 97 04/09/17 20:00 97.6 81 17 163/78 (106) 98 04/09/17 16:05 96.8 83 17 141/70 (93) 95 04/09/17 15:54 17 04/09/17 14:30 18 I/O 04/09/17 04/09/17 04/09/17 04/10/17 04/10/17 04/10/17 07:00 15:00 23:00 07:00 15:00 23:00 Intake Total 990 ml 660 ml 720 ml 360 ml Balance 990 ml 660 ml 720 ml 360 ml Intake Oral 0 ml 660 ml 720 ml 360 ml IV Total 990 ml # Voids 2 2 1 1 # Bowel Movements 1 Result Diagram: 04/09/17 0455 04/09/17 0455 Imaging Last Impressions Cervical Spine X-Ray 04/09/17 0000 Signed Impressions: Service Date/Time: Sunday, April 09, 2017 10:08 - CONCLUSION: Negative for significant motion however flexion and extension is very limited. Filippo Geller MD FACR Thoracic Spine CT 04/08/17 1401 Signed Impressions: Service Date/Time: March 15:11 - CONCLUSION: No evidence of acute bony injury in the thoracic spine Daniel Henson MD Knee X-Ray 04/08/17 1401 Signed Impressions: Service Date/Time: March 14:28 - CONCLUSION: 1. No evidence of acute fracture or dislocation. 2. Mild prepatellar soft tissue swelling. 3. Status post knee replacement. Lonnie Garcia MD Head CT 04/08/17 140 Signed Impressions: Service Date/Time: March 15:06 - CONCLUSION: 1. Unremarkable exam. 2. No evidence of acute infarct, hemorrhage, mass or edema. 3. Intact calvarium. Lonnie Garcia MD Cervical Spine CT 04/08/17 1401 Signed Impressions: Service Date/Time: March 15:06 - CONCLUSION: Mildly displaced hangman's fractures at C5 and C6. Daniel Henson MD Objective Remarks GENERAL: This is well nourished, well-developed patient, in no apparent distress. SKIN: Warm and dry. HEAD: Normocephalic. Scalp tenderness in the back. EYES: Pupils equal round and reactive. Extraocular motions intact. No scleral icterus. No injection or drainage. ENT: Nose without bleeding. Throat without erythema. Uvula midline. Airway patent. NECK: Trachea midline. C-collar in place. CARDIOVASCULAR: Regular rate and rhythm without murmurs, gallops, or rubs. RESPIRATORY: Clear to auscultation. Breath sounds equal bilaterally. No wheezes , rales, or rhonchi. GASTROINTESTINAL: Abdomen soft, non-tender, nondistended. Bowel sounds active 4. MUSCULOSKELETAL: Extremities without clubbing, cyanosis, or edema. Right knee joint tenderness, trace edema on the knee, no erythema. NEUROLOGICAL: Awake and alert. Oriented to person, place, time. Cranial nerves II through XII intact. Motor and sensory grossly within normal limits. Normal speech. PSYCH: Mood and affect appropriate. Procedures None. Medications and IVs Current Medications Medications (Trade) Dose Ordered Sig/Anisha Route Start Time Stop Time Status Last Admin Sodium Chloride 1,000 ml @ 100 mls/hr Q10H IV 04/08/17 17:13 04/09/17 04:30 (NS Flush) 2 ml UNSCH PRN IV FLUSH 04/08/17 17:15 (NS Flush) 2 ml BID IV FLUSH 04/08/17 21:00 04/10/17 09:36 (Tylenol) 650 mg Q4H PRN PO 04/08/17 17:15 (Zofran Inj) 4 mg Q6H PRN IVP 04/08/17 17:15 (Narcan Inj) 0.4 mg UNSCH PRN IV PUSH 04/08/17 17:15 (Lela-Colace) 1 tab BID PO 04/08/17 21:00 04/09/17 20:19 (Milk Of Magnesia Liq) 30 ml Q12H PRN PO 04/08/17 17:15 (Senokot) 17.2 mg Q12H PRN PO 04/08/17 17:15 (Dulcolax Supp) 10 mg DAILY PRN RECTAL 04/08/17 17:15 (Lactulose Liq) 30 ml DAILY PRN PO 04/08/17 17:15 ([place] 7.5-325 Mg) 1 tab Q4H PRN PO 04/08/17 18:15 04/09/17 13:30 (Neurontin) 300 mg TID PO 04/09/17 14:00 04/10/17 13:39 (Protonix) 40 mg DAILY PO 04/09/17 14:00 04/10/17 09:36 (Pamelor) 25 mg HS PO 04/09/17 21:00 04/09/17 20:18 (Roxicodone) 10 mg Q4H PRN PO 04/09/17 13:30 04/10/17 13:39 (Roxicodone) 10 mg Q4H PRN PO 04/09/17 13:45 04/09/17 14:54 A/P Problem List: (1) Fibromyalgia ICD Code: M79.7 - Fibromyalgia Status: Chronic (2) Status post fall ICD Code: Z91.81 - History of falling Status: Acute (3) Displacement of intervertebral disc at C5-C6 level ICD Code: M50.222 - Other cervical disc displacement at C5-C6 level Status: Acute Assessment and Plan Patient is a 66 year old female with primary medical history of arthritis, depression, fibromyalgia who came into the hospital status post fall. S/P Fall, mildly displaced hangman's fractures at C5 and C6 Cervical CT of the spine showed mildly displaced hangman's fracture at C5-C6. Head CT 1. Unremarkable exam. 2. No evidence of acute infarct, hemorrhage, mass or edema. 3. Intact calvarium. - Continue with c-collar. Discussed with patient to maintain collar. - Neurosurgery consult appreciated. The pt is clear for discharge. - Pain management, patient has known fibromyalgia and takes Vicodin at home. Start [place]/ Oxycodone as needed for pain. - incentive spirometry. - PT/ OT. Anemia Unsure of baseline. Questionable iron deficiency based on labs. - will start iron supplementation. - outpt follow-up. Fibromyalgia Chronic. - Continue nortriptyline and gabapentin. GERD On omeprazole as an outpt. - continue PPI. DVT prop SCDs Discharge Planning Anticipate discharge home with home health care tomorrow if patient feels stable enough Max Lynn DO Apr 10, 2017 14:06
[2017-04-10] MEDS: FERROUS SULFATE 325 MG (65 MG ELEMENTAL IRON) TAB PO SCH (21:00)
[2017-04-10] MEDS: ACETAMINOPHEN/HYDROcodone 325 MG/7.5 MG TAB PO PRN (23:37)
[2017-04-10] MEDS: NORTRIPTYLINE HCL 25 MG CAP PO SCH (23:37)
[2017-04-11 00:16] VITALS: BP 138/59; PULSE 96; RESP 18; TEMP 99.7; O2SAT 94
[2017-04-11 04:18] VITALS: BP 131/79; PULSE 91; RESP 18; TEMP 99.5; O2SAT 94
[2017-04-11] MEDS: SODIUM CHLOR 0.9% 1000 ML INJ 1,000 ML IV SCH (05:13)
[2017-04-11 08:00] VITALS: BP 146/69; PULSE 89; RESP 17; TEMP 97.8; O2SAT 92
[2017-04-11 08:09] VITALS: PULSE 87
[2017-04-11] MEDS: DOCUSATE SODIUM 50 MG/SENNA 8.6 MG TAB PO SCH (09:29)
[2017-04-11] MEDS: FERROUS SULFATE 325 MG (65 MG ELEMENTAL IRON) TAB PO SCH (09:29)
[2017-04-11] MEDS: SODIUM CHLORIDE 0.9% FLUSH 10 ML FLUSH IV FLUSH SCH (09:29)
[2017-04-11] MEDS: PANTOPRAZOLE SOD 40 MG DELAYED RELEASE TAB PO SCH (09:29)
[2017-04-11] MEDS: GABAPENTIN 300 MG CAP PO SCH (09:29)
[2017-04-11] MEDS ORDERED: OXYC1CAP PO (09:50)
--- NOTE | 2017-04-11 10:13 | HHI.NSPN ---
History Interval History 66-year-old woman status post non-syncopal fall sustaining a neck injury with spinous process fractures C5 through C7. She is in a [place] collar. Neck pain is improving. Patient is up and ambulated with walker this morning. Exam Results Vital Signs Date Time Temp Pulse Resp B/P (MAP) Pulse Ox O2 Delivery O2 Flow Rate FiO2 04/11/17 08:00 97.8 89 17 146/69 (94) 92 04/09/17 10:00 Nasal Cannula 04/09/17 06:12 21 Intake and Output 04/11/17 04/11/17 04/12/17 08:00 16:00 00:00 Intake Total 120 ml Balance 120 ml Physical Examination Neurological examination is intact without focal motor or sensory deficits. Neck: Patient has a significant amount of posterior midline and paraspinal tenderness left greater than right. Medical Decision Making Impression and Plan Assessment: Non-syncopal fall with cervical spinous process fracture C5 through 7. This is a stable injury. Plan: Patient will be treated with external orthosis for pain management. She may be discharged when pain is tolerable and she is ambulating stably per physical therapy assessment. Otis Bassett MD Apr 11, 2017 10:13
--- NOTE | 2017-04-11 11:14 | RADRPT ---
EXAM DATE/TIME: 04/11/2017 10:12 [facility] COMPARISON: No previous studies available for comparison. INDICATIONS : Short of Breath MEDICAL HISTORY : Diabetes mellitus type 1 SURGICAL HISTORY : Tonsillectomy. Total knee replacement, right. Gastric bypass. ENCOUNTER: Initial ACUITY: 1 day PAIN SCORE: 0/10 LOCATION: Bilateral chest FINDINGS: A single view of the chest demonstrates mild left basal atelectasis. No consolidating infiltrates, ma ss densities or effusions. Heart is normal in size. CONCLUSION: Mild left basilar atelectasis with no other evidence of acute process. Lonnie Garcia MD on April 11, 2017 at 11:11 Board Certified Radiologist. This report was verified electronically.
--- NOTE | 2017-04-11 11:30 | RADRPT ---
EXAM DATE/TIME: 04/11/2017 10:15 [facility] COMPARISON: No previous studies available for comparison. INDICATIONS : Left shoulder pain post fall MEDICAL HISTORY : Arthritis. Diabetic. SURGICAL HISTORY : Tonsillectomy. Total knee replacement, right. Gastric bypass. ENCOUNTER: Initial ACUITY: 2 days PAIN SCORE: 8/10 LOCATION: Left shoulder FINDINGS: Multiple view examination of the left shoulder demonstrates no evidence of fracture or dislocation. The glenohumeral and acromioclavicular joints are maintained. Mild sclerosis is seen along the greate r tuberosity. There is normal range of motion between internal and external rotation. Bony minerali zation is normal. CONCLUSION: No evidence of fracture or dislocation. Left lung airspace disease characteristic of atelectasis. Lonnie Garcia MD on April 11, 2017 at 11:26 Board Certified Radiologist. This report was verified electronically.
--- NOTE | 2017-04-11 11:33 | HHI.DCPOC ---
Discharge Care Plan Diagnosis: (1) Displacement of intervertebral disc at C5-C6 level (2) Status post fall (3) Fibromyalgia Goals to Promote Your Health * To prevent worsening of your condition and complications * To maintain your health at the optimal level Directions to Meet Your Goals Take your medications as prescribed Follow your dietary instruction Follow activity as directed Keep your appointments as scheduled Take your immunizations and boosters as scheduled If your symptoms worsen call your PCP, if no PCP go to Urgent Care Center or Emergency Room Smoking is Dangerous to Your Health. Avoid second hand smoke Call the 24-hour hour crisis hotline for domestic abuse at Max Lynn DO Apr 11, 2017 11:33
--- NOTE | 2017-04-11 11:38 | HHI.DS ---
Discharge Summary Admission Date Apr 08, 2017 at 17:15 Discharge Date: Apr 11, 2017 Admitting Diagnosis raphael fracture's C5, C6 (1) Fibromyalgia ICD Code: M79.7 - Fibromyalgia Status: Chronic (2) Status post fall ICD Code: Z91.81 - History of falling Diagnosis: Principal Status: Acute (3) Displacement of intervertebral disc at C5-C6 level ICD Code: M50.222 - Other cervical disc displacement at C5-C6 level Diagnosis: Principal Status: Acute Procedures None. Brief History - From Admission Patient is a 66 year old female with primary medical history of arthritis, depression, fibromyalgia who came into the hospital status post fall. Patient states that she was standing and there was a little girl beside her trying to draw on the ground and she told her to move a little bit she turned around she thought that she probably tripped on herself and she fell backwards and hit her head on the ground twice. States she did not have any hour out, dizziness, headaches prior to falling. She had a previous fall about 3 months ago where and she was in [place] and was hospitalized for that said she had bruised her left side and most of her ribs are still hurting. States that she now has of pain 8/10 burning from the neck towards her back, she usually gets relief from pain medication, aggravated by breathing and movement. She also complains of headache but states she was given some Tylenol and she is waiting for relief from it. Denies chest pain, palpitations, shortness of breath, dyspnea. Denies nausea, vomiting, diarrhea. Denies any fevers, chills. Denies any exposure to sick people or animals. Denies dysuria, hematuria. Denies numbness / tingling in all extremities. CBC/BMP: 04/09/17 0455 04/09/17 0455 Significant Findings Laboratory Tests Test 04/08/17 14:07 04/08/17 15:00 04/09/17 04:55 Red Blood Count 3.73 MIL/MM3 (4.00-5.30) 3.64 MIL/MM3 (4.00-5.30) Hemoglobin 11.4 GM/DL (11.6-15.3) 10.9 GM/DL (11.6-15.3) Hematocrit 34.4 % (35.0-46.0) 33.6 % (35.0-46.0) Monocytes (%) (Auto) 8.6 % (0.0-8.0) 8.9 % (0.0-8.0) Eosinophils (%) (Auto) 5.2 % (0.0-4.0) 5.9 % (0.0-4.0) Random Glucose 71 MG/DL (74-106) Alkaline Phosphatase 133 U/L (45-117) 125 U/L (45-117) Chloride Level 108 MEQ/L (98-107) 109 MEQ/L (98-107) Estimat Glomerular Filtration Rate 71 ML/MIN (>89) 72 ML/MIN (>89) Mean Platelet Volume 6.9 FL (7.0-11.0) Albumin 3.0 GM/DL (3.4-5.0) Calcium Level 8.3 MG/DL (8.5-10.1) Imaging Last Impressions Chest X-Ray 04/11/17 0000 Signed Impressions: Service Date/Time: Tuesday, April 11, 2017 10:12 - CONCLUSION: Mild left basilar atelectasis with no other evidence of acute process. Lonnie Garcia MD Cervical Spine X-Ray 04/09/17 0000 Signed Impressions: Service Date/Time: Sunday, April 09, 2017 10:08 - CONCLUSION: Negative for significant motion however flexion and extension is very limited. Filippo Geller MD FACR Thoracic Spine CT 04/08/17 140 Signed Impressions: Service Date/Time: March 15:11 - CONCLUSION: No evidence of acute bony injury in the thoracic spine Daniel Henson MD Knee X-Ray 04/08/17 140 Signed Impressions: Service Date/Time: March 14:28 - CONCLUSION: 1. No evidence of acute fracture or dislocation. 2. Mild prepatellar soft tissue swelling. 3. Status post knee replacement. Lonnie Garcia MD Head CT 04/08/17 1401 Signed Impressions: Service Date/Time: March 15:06 - CONCLUSION: 1. Unremarkable exam. 2. No evidence of acute infarct, hemorrhage, mass or edema. 3. Intact calvarium. Lonnie Garcia MD Cervical Spine CT 04/08/17 1401 Signed Impressions: Service Date/Time: , April 08, 2017 15:06 - CONCLUSION: Mildly displaced hangman's fractures at C5 and C6. Daniel Henson MD PE at Discharge GENERAL: This is well nourished, well-developed patient, in no apparent distress. SKIN: Warm and dry. HEAD: Normocephalic. Scalp tenderness in the back. EYES: Pupils equal round and reactive. Extraocular motions intact. No scleral icterus. No injection or drainage. ENT: Nose without bleeding. Throat without erythema. Uvula midline. Airway patent. NECK: Trachea midline. C-collar in place. CARDIOVASCULAR: Regular rate and rhythm without murmurs, gallops, or rubs. RESPIRATORY: Clear to auscultation. Breath sounds equal bilaterally. No wheezes , rales, or rhonchi. GASTROINTESTINAL: Abdomen soft, non-tender, nondistended. Bowel sounds active 4. MUSCULOSKELETAL: Extremities without clubbing, cyanosis, or edema. Right knee joint tenderness, trace edema on the knee, no erythema. NEUROLOGICAL: Awake and alert. Oriented to person, place, time. Cranial nerves II through XII intact. Motor and sensory grossly within normal limits. Normal speech. PSYCH: Mood and affect appropriate. Pt update on day of discharge The patient complained of pain around her neck and left shoulder. She said she has been ambulating well. She said she would like to go home but will need a ride. Discussed with nursing and case management. Hospital Course Mildly displaced hangman's fractures at C5 and C6 Secondary to a mechanical fall. Head CT was unremarkable. Cervical CT of the spine showed mildly displaced hangman's fracture at C5-C6. Neurosurgery was consulted. She was placed on a [place] collar. The patient received pain control with a bowel regimen. She worked with physical and occupational therapy. She received incentive spirometry. The pt was cleared for discharge by neurosurgery. The patient will be discharged on pain medication and will follow-up with neurosurgery. She will continue the [place] collar. Anemia Stable. Iron supplement was ordered but the patient refused the medication. She'll follow with her primary care doctor. Pt Condition on Discharge: Stable Discharge Disposition: Discharge Home Discharge Time: > 30 minutes Discharge Instructions DIET: Follow Instructions for: As Tolerated, No Restrictions Activities you can perform: Weight Bearing as [place] Follow up Referrals: Neurosurgery - 1 Week with Alexey Wetzel MD PCP Follow-up - 1 Week New Medications: Oxycodone (Oxycodone) 5 Mg Cap 5 MG PO Q6H PRN for PAIN, #30 CAP 0 Refills Continued Medications: Gabapentin (Gabapentin) 300 Mg Cap Unknown Dose PO BID, #60 CAP 0 Refills Nortriptyline (Nortriptyline) 25 Mg Cap Unknown Dose PO BID for Depression Control, #30 CAP 0 Refills Omeprazole (Omeprazole) 40 Mg Cap 40 MG PO DAILY, #30 CAP 0 Refills Discontinued Medications: [vicodin] () Unknown Dose PO BID PRN for PAIN SCALE 6 TO 10 Max Lynn DO Apr 11, 2017 11:38
== END 2017-04-11 12:57 | disposition home or self-care (01) | DRG 552 ==
LOC: NEPC 13:40 → NEDA 17:15 → N06A 20:47
PROVIDERS: ADMIT Hospitalist; ATTEND Hospitalist
DX: S12.590A Other displaced fracture of sixth cervical vertebra, initial encounter for closed fracture (principal); E11.9 Type 2 diabetes mellitus without complications; D64.9 Anemia, unspecified; K21.9 Gastro-esophageal reflux disease without esophagitis; S12.690A Other displaced fracture of seventh cervical vertebra, initial encounter for closed fracture; S12.490A Other displaced fracture of fifth cervical vertebra, initial encounter for closed fracture; M19.90 Unspecified osteoarthritis, unspecified site; F32.9 Major depressive disorder, single episode, unspecified; M79.7 Fibromyalgia; W01.0XXA Fall on same level from slipping, tripping and stumbling without subsequent striking against object, initial encounter; Z88.5 Allergy status to narcotic agent; Z91.81 History of falling; Z96.651 Presence of right artificial knee joint; Z98.84 Bariatric surgery status
CPT/HCPCS: 70450; 71010; 72040; 72125; 72128; 73030; 73564; 80053; 81001; 82607; 82728; 82746; 83540; 83550; 85025; 85610; 85730; 94150; 96360; 96361; J7030